=== PATIENT | male | born 1950 | race Caucasian/White ===

== ENCOUNTER 2019-07-25 13:46 | Inpatient (IN) ==
[2019-07-25] MEDS ORDERED: Ipratropium/Albuterol Neb 3 ML IH ONE (13:59)
[2019-07-25 14:55] LABS: Hematocrit 40.9 % (37.5-50.1); Hemoglobin 12.8 g/dL (12.9-16.9); Lymphocytes # 0.2 K/mcL (0.6-4.6); Mean Corpuscular HGB Conc 31.3 g/dL (31.6-35.5); Mean Corpuscular Hemoglobin 31.4 pg (28.0-33.3); Mean Corpuscular Volume 100.2 fL (83.0-100.0); Mean Platelet Volume 10.2 fL (9.4-12.4); Monocytes # 0.1 K/mcL (0.0-1.3); Platelet Count 137 K/mcL (140-400); Red Blood Count 4.08 M/mcL (4.19-5.50); Red Cell Distribution Width 14.1 % (11.5-14.5); White Blood Count 4.2 K/mcL (4.3-11.1)
[2019-07-25 14:58] LABS: VBG HCO3 32 mEq/L (21-27); VBG PCO2 64 mmHg (41-51); VBG PO2 84 mmHg (25-50)
[2019-07-25] MEDS ORDERED: levoFLOXacin 750 MG/150 ML 750 MG/150 ML BAG IVPB ONE (15:32)
[2019-07-25 15:33] LABS: BUN/Creatinine Ratio 17 (6-26); Blood Urea Nitrogen 15 mg/dL (8-23); Calcium 8.7 mg/dL (8.6-10.3); Carbon Dioxide 30 mEq/L (23-29); Glucose 146 mg/dL (70-105); Platelet Estimate Slight Decrease (Normal); Troponin I < 0.03 ng/mL (< 0.04); eGFR For African Americans > 60 (> 60); eGFR For Non-African Americans > 60 (> 60)
[2019-07-25 16:13] LABS: Chloride 106 mEq/L (98-107); Osmolality,Calculated 303 (280-300); Potassium 4.1 mEq/L (3.5-5.1); Sodium 145 mEq/L (136-145)
[2019-07-25] MEDS ORDERED: Naloxone 0.4 MG/ML INJ IVP PRN (17:01)
[2019-07-25] MEDS ORDERED: Lactulose Oral Soln 20 GM/30 ML UDC PO PRN (17:28)
[2019-07-25] MEDS: OLANZapine 5 MG TAB.RAPDIS PO SCH (19:32)
[2019-07-25] MEDS: Furosemide 40 MG/4 ML VIAL IVP SCH ×2 (19:32)
[2019-07-25] MEDS: *HR* Heparin 5,000 UNIT/ML VIAL SQ SCH (19:33)
[2019-07-25 21:46] LABS: Adenovirus Not Detected (Not Detect); Bordetella Pertussis Not Detected (Not Detect); Chlamydophila pneumoniae Not Detected (Not Detect); Coronavirus 229E Not Detected (Not Detect); Coronavirus HKU1 Not Detected (Not Detect); Coronavirus NL63 Not Detected (Not Detect); Coronavirus OC43 Not Detected (Not Detect); Human Metapneumovirus Not Detected (Not Detect); Human Rhinovirus/Enterovirus Not Detected (Not Detect); Influenza A Subtype 2009 H1 Not Detected (Not Detect); Influenza B Not Detected (Not Detect); Mycoplasma pneumoniae Not Detected (Not Detect); Parainfluenza Virus 1 Not Detected (Not Detect); Parainfluenza Virus 2 Not Detected (Not Detect); Parainfluenza Virus 3 Not Detected (Not Detect); Parainfluenza Virus 4 Not Detected (Not Detect); Respiratory Syncytial Virus DETECTED (Not Detect)
[2019-07-25] MEDS: Ipratropium/Albuterol Neb 3 ML IH SCH (22:09)
[2019-07-25] MEDS ORDERED: Perflutren Lipid Microsphere 1.3 ML in 0.9 % Sodium Chloride 8.7 ML IVP ONE (22:25)
[2019-07-26] MEDS: MethylPREDNISolone 40 MG/ML VIAL IVP SCH ×3 (00:10→16:15)
[2019-07-26] MEDS: Ipratropium/Albuterol Neb 3 ML IH SCH ×3 (03:37→16:02)
[2019-07-26 04:28] LABS: ABG Base Excess 9 mEq/L (-2 to 3); ABG HCO3 37 mEq/L (21-27); ABG Oxygen Saturation 93 % (95-98); ABG PCO2 61 mmHg (35-45); ABG PH 7.39 pH Units (7.32-7.45); ABG PO2 69 mmHg (85-104); ABG TCO2 39 mEq/L (20-26); Blood Gas FiO2 4.5 (1-15=lpm or21-100=%)
[2019-07-26 05:07] LABS: Hematocrit 40.5 % (37.5-50.1); Hemoglobin 12.9 g/dL (12.9-16.9); Immature Granulocytes % 0.9 % (0-4); Lymphocytes # 0.4 K/mcL (0.6-4.6); Lymphocytes % 7.9 %; Mean Corpuscular HGB Conc 31.9 g/dL (31.6-35.5); Mean Corpuscular Hemoglobin 31.2 pg (28.0-33.3); Mean Corpuscular Volume 98.1 fL (83.0-100.0); Mean Platelet Volume 10.4 fL (9.4-12.4); Monocytes # 0.1 K/mcL (0.0-1.3); Monocytes % 2.9 %; Neutrophils # 3.9 K/mcL (1.6-8.9); Platelet Count 148 K/mcL (140-400); Red Blood Count 4.13 M/mcL (4.19-5.50); Red Cell Distribution Width 13.5 % (11.5-14.5); Segmented Neutrophils % 88.3 %; White Blood Count 4.4 K/mcL (4.3-11.1)
[2019-07-26 05:08] LABS: INR 3.3; Prothrombin Time 37.6 Seconds (9.4-12.1)
[2019-07-26 05:26] LABS: % Iron Saturation 19 % (20-55); Iron 60 mcg/dL (65-175); Transferrin 222 mg/dL (203-362)
[2019-07-26 05:42] LABS: Ferritin 106 ng/mL (20-250)
[2019-07-26 05:46] LABS: BUN/Creatinine Ratio 22 (6-26); Blood Urea Nitrogen 18 mg/dL (8-23); Calcium 8.6 mg/dL (8.6-10.3); Carbon Dioxide 32 mEq/L (23-29); Chloride 101 mEq/L (98-107); Glucose 138 mg/dL (70-105); Osmolality,Calculated 298 (280-300); Potassium 3.7 mEq/L (3.5-5.1); Sodium 142 mEq/L (136-145); eGFR For African Americans > 60 (> 60); eGFR For Non-African Americans > 60 (> 60)
[2019-07-26 05:47] LABS: Folate 14.8 ng/mL (3.0-16.0)
[2019-07-26] MEDS: *HR* Heparin 5,000 UNIT/ML VIAL SQ SCH (05:50)
[2019-07-26 08:46] LABS: Estimated Average Glucose 128 mg/dl
[2019-07-26 09:51] LABS: Procalcitonin 0.07 ng/mL (0.00-0.15)
[2019-07-26] MEDS: Furosemide 40 MG/4 ML VIAL IVP SCH ×2 (10:13→20:59)
[2019-07-26] MEDS: Metoprolol XL (24 HR) Succ 25 MG TAB.ER.24H PO SCH (12:07)
[2019-07-26] MEDS ORDERED: Ipratropium/Albuterol Neb 3 ML IH PRN (17:33)
[2019-07-26] MEDS ORDERED: *HR* Warfarin 3 MG TABLET PO ONE (18:00)
[2019-07-26] MEDS ORDERED: Warfarin perPT PO PRN (18:00)
[2019-07-26] MEDS ORDERED: Ipratropium/Albuterol Neb 3 ML IH SCH (20:00)
[2019-07-26] MEDS: OLANZapine 5 MG TAB.RAPDIS PO SCH (20:59)
[2019-07-27] MEDS: MethylPREDNISolone 40 MG/ML VIAL IVP SCH ×4 (00:44→23:14)
[2019-07-27 01:37] LABS: Prothrombin Time 34.3 Seconds (9.4-12.1)
[2019-07-27] MEDS: Furosemide 40 MG/4 ML VIAL IVP SCH (09:36)
[2019-07-27] MEDS: Metoprolol XL (24 HR) Succ 25 MG TAB.ER.24H PO SCH (09:37)
[2019-07-27] MEDS ORDERED: Albuterol 2.5 MG/3 ML NEBULIZER IH PRN (10:23)
[2019-07-27] MEDS: Ipratropium/Albuterol Neb 3 ML IH SCH ×5 (10:38→19:59)
[2019-07-27 13:30] LABS: BUN/Creatinine Ratio 27 (6-26); Blood Urea Nitrogen 27 mg/dL (8-23); Calcium 8.7 mg/dL (8.6-10.3); Carbon Dioxide 35 mEq/L (23-29); Chloride 98 mEq/L (98-107); Glucose 178 mg/dL (70-105); Osmolality,Calculated 300 (280-300); Potassium 3.7 mEq/L (3.5-5.1); Sodium 140 mEq/L (136-145); eGFR For African Americans > 60 (> 60); eGFR For Non-African Americans > 60 (> 60)
[2019-07-27] MEDS ORDERED: *HR* Warfarin 3 MG TABLET PO ONE (18:00)
[2019-07-27] MEDS: OLANZapine 5 MG TAB.RAPDIS PO SCH (21:20)
[2019-07-28 01:02] LABS: Prothrombin Time 22.8 Seconds (9.4-12.1)
[2019-07-28] MEDS: MethylPREDNISolone 40 MG/ML VIAL IVP SCH ×2 (09:31→22:24)
[2019-07-28] MEDS: Metoprolol XL (24 HR) Succ 25 MG TAB.ER.24H PO SCH ×2 (09:31→20:17)
[2019-07-28] MEDS: Ipratropium/Albuterol Neb 3 ML IH SCH ×3 (11:28→21:47)
[2019-07-28] MEDS ORDERED: *HR* Warfarin 3 MG TABLET PO ONE (18:00)
[2019-07-28] MEDS: OLANZapine 5 MG TAB.RAPDIS PO SCH (20:17)
[2019-07-28] MEDS ORDERED: Mag Hydrox/Al Hydrox/Simeth 30 ML UDC PO STA (20:31)
[2019-07-29] MEDS: Ipratropium/Albuterol Neb 3 ML IH SCH ×4 (03:43→21:51)
[2019-07-29 04:56] LABS: INR 2.1; Prothrombin Time 24.1 Seconds (9.4-12.1)
[2019-07-29] MEDS: MethylPREDNISolone 40 MG/ML VIAL IVP SCH ×2 (09:40→22:32)
[2019-07-29] MEDS: Metoprolol XL (24 HR) Succ 25 MG TAB.ER.24H PO SCH ×2 (09:40→22:32)
[2019-07-29 13:06] LABS: ABG Base Excess 8 mEq/L (-2 to 3); ABG HCO3 34 mEq/L (21-27); ABG Oxygen Saturation 94 % (95-98); ABG PCO2 52 mmHg (35-45); ABG PH 7.42 pH Units (7.32-7.45); ABG PO2 73 mmHg (85-104); ABG TCO2 36 mEq/L (20-26)
[2019-07-29] MEDS ORDERED: *HR* Warfarin 3 MG TABLET PO ONE (18:00)
[2019-07-29] MEDS: OLANZapine 5 MG TAB.RAPDIS PO SCH (22:32)
[2019-07-30] MEDS: Ipratropium/Albuterol Neb 3 ML IH SCH ×3 (03:36→16:13)
[2019-07-30 04:50] LABS: INR 2.3; Prothrombin Time 26.1 Seconds (9.4-12.1)
[2019-07-30] MEDS: MethylPREDNISolone 40 MG/ML VIAL IVP SCH (09:31)
[2019-07-30] MEDS: Metoprolol XL (24 HR) Succ 25 MG TAB.ER.24H PO SCH (09:31)
[2019-07-30 11:37] VITALS: BP 127/78
[2019-07-30] MEDS ORDERED: *HR* Warfarin 3 MG TABLET PO ONE (18:00)
[2019-07-31] MEDS ORDERED: predniSONE 20 MG TABLET PO SCH (09:00)
== END 2019-07-30 18:58 | DRG 193 ==
LOC: EMEROOARM 13:46 → 2NENU 18:28 → SUATTDRO 18:28 → 2NENU 18:49
PROVIDERS: ADMIT Internal Medicine; ATTEND Internal Medicine